=== PATIENT | male | born 1960 | race Caucasian/White ===

== ENCOUNTER 2017-10-12 08:08 | Day surgery (SDC) | payer BC ==
[2017-10-10 14:14] VITALS: BMI 27.6
[2017-10-12] MEDS ORDERED: MIDAZOLAM HCL 2 MG/2 ML SINGLE DOSE VIAL ONE (09:28)
[2017-10-12] MEDS ORDERED: DEXAMETHASONE SOD PHOSPHATE 4 MG/1 ML VIAL ONE (09:30)
[2017-10-12] MEDS ORDERED: PROPOFOL 20 ML ONE ×3 (09:30→09:31)
[2017-10-12] MEDS ORDERED: ONDANSETRON 4 MG/2 ML VIAL ONE ×2 (09:30→10:54)
[2017-10-12] MEDS ORDERED: fentaNYL CITRATE 250 MCG/5 ML VIAL ONE (09:30)
[2017-10-12] MEDS ORDERED: BUPIVACAINE HCL/PF 2.5 MG/ML - 30 ML VIAL IJ ONE (09:34)
[2017-10-12] MEDS ORDERED: ceFAZolin SODIUM 1 GM VIAL ONE (09:49)
[2017-10-12] MEDS ORDERED: DESFLURANE GAS 240 ML BOTTLE IH ONE (10:16)
[2017-10-12] MEDS ORDERED: ePHEDrine SULFATE 50 MG/1 ML AMPULE ONE (10:19)
[2017-10-12] MEDS ORDERED: ONDANSETRON 4 MG/2 ML VIAL IVPUSH PRN (11:14)
[2017-10-12] MEDS ORDERED: oxyCODONE HCL 5 MG TABLET PO PRN (11:14)
[2017-10-12] MEDS ORDERED: LACTATED RINGERS SOLUTION 1,000 ML IV SCH (11:15)
[2017-10-12 11:51] VITALS: TEMP 98
[2017-10-12 12:30] VITALS: BP 114/74; PULSE 76
--- NOTE | 2017-10-13 16:59 | OP ---
DATE OF OPERATION: 10/12/2017 PREOPERATIVE DIAGNOSIS: Left medial epicondylitis. POSTOPERATIVE DIAGNOSIS: Left medial epicondylitis. OPERATIVE PROCEDURE: Left medial epicondylar release with repair of common flexor tendon. SURGEON: Davon Ramírez MD ANESTHESIA: General. COMPLICATIONS: None. ESTIMATED BLOOD LOSS: Minimal. INDICATION FOR PROCEDURE: The patient is a 57-year-old male with the above finding, indicated for operative treatment. Risks, benefits, and alternatives were discussed with the patient at length. Proper informed consent was obtained. Of note, the patient initially had medial and lateral epicondylitis, but the lateral epicondylitis had resolved by the time of surgery; so, we just did the medial side. I had discussed this with the patient preoperatively. PROCEDURE: After proper identification of the patient and the correct operative site, the patient was brought to the operating room and placed supine on the operating room table. All bony prominences were well padded. General anesthesia was provided by the anesthesiologist and adequate for the procedure. The left upper extremity was prepped and draped in the usual sterile fashion. A well-padded tourniquet was placed as well as a sterile prep. An Esmarch bandage was used to exsanguinate the left upper extremity. Tourniquet was inflated to 250 mmHg. A curvilinear incision was made over the medial aspect of the elbow over the medial epicondyle. Incision was taken sharply through the skin with blunt and sharp dissection through the subcutaneous tissues. There was significant redness to the common flexor tendon origin, and this was divided longitudinally and tendinosis was found deep to the superficial layer which was debrided. Medial epicondyle was debrided. Partial tearing of the common flexor tendon was noted, and this was debrided and then repaired in a [id number] fashion back down to the medial epicondyle. Wound was irrigated and repaired in layers using 4-0 Vicryl and Monocryl suture. Steri-Strips and sterile dressings were applied. Patient was reversed from anesthesia and brought to Recovery in stable condition. He tolerated the procedure well. DAVON RAMÍREZ M.D. [facility]/[id number]
== END 2017-10-12 12:20 | disposition home or self-care (01) ==
LOC: FASU 08:08
PROVIDERS: ATTEND Orthopaedic Surgery Hand Surgery
PROC: 0PBD0ZZ Excision of Left Humeral Head, Open Approach (ICD-10-PCS; 2017-10-12)
PROC: 0PBG0ZZ Excision of Left Humeral Shaft, Open Approach (ICD-10-PCS; principal; 2017-10-12 10:03)
DX: M77.02 Medial epicondylitis, left elbow (principal)
CPT/HCPCS: 94760

== ENCOUNTER 2018-02-04 08:23 | Emergency (ER) | payer BC ==
[2018-02-04] MEDS ORDERED: DIPHTH,PERTUSS(ACELL),TET 0.5 ML DISP.SYRIN IM ONE (08:28)
[2018-02-04 08:33] VITALS: BP 139/83; PULSE 73; TEMP 98.5; BMI 27.9
--- NOTE | 2018-02-04 09:13 | PDOC ---
History of Present Illness - General Chief Complaint: Foreign Body (FB) Stated Complaint: SPLINTER LEFT HEEL Time Seen by Provider: 02/04/18 08:24 History Source: Patient Exam Limitations: No Limitations - History of Present Illness Initial Comments: 02/04/18 09:05 Patient is a 57-year-old man with no history of diabetes mellitus who presents complaining of a splinter in his left heel. He got a splinter when putting on his sneaker about a week ago. There is some tenderness to the area and some slight localized redness. No fever or chills. Review of systems: No fever or chills No other joint pains Positive slight redness to the skin in the area of the splinter. Past History - Past Medical History Allergies/Adverse Reactions: Allergies Allergy/AdvReac Type Severity Reaction Status Date / Time No Known Allergies Allergy Verified 02/04/18 08:24 Home Medications: Ambulatory Orders Amlodipine Besylate 5 mg PO DAILY 10/10/17 Duloxetine HCl [Cymbalta] 60 mg PO DAILY 10/10/17 Lamotrigine [Lamotrigine ER] 100 mg PO DAILY 10/10/17 Rosuvastatin Calcium [Crestor] 5 mg PO DAILY 10/10/17 Cefadroxil 500 mg PO BID #14 capsule 02/04/18 Naproxen [Naprosyn -] 375 mg PO BID PRN #14 tablet 02/04/18 Anemia: No Asthma: No Cancer: No Cardiac Disorders: No CVA: No COPD: No CHF: No Dementia: No Diabetes: No GI Disorders: Yes (GERD) Disorders: No HTN: Yes Hypercholesterolemia: Yes Liver Disease: No Seizures: No Thyroid Disease: No - Surgical History Abdominal Surgery: No Appendectomy: Yes (CHILD) Cardiac Surgery: No Cholecystectomy: No Lung Surgery: No Neurologic Surgery: No Orthopedic Surgery: Yes (LEFT BICEP) - Suicide/Smoking/Psychosocial Hx Smoking Status: No Smoking History: Never smoked Have you smoked in the past 12 months: No Number of Cigarettes Smoked Daily: 0 Information on smoking cessation initiated: No Hx Alcohol Use: No Drug/Substance Use Hx: No Substance Use Type: Alcohol Hx Substance Use Treatment: No *Physical Exam - Vital Signs Last Vital Signs Temp Pulse Resp BP Pulse Ox 98.5 F 73 20 139/83 100 02/04/18 08:24 02/04/18 08:24 02/04/18 08:24 02/04/18 08:24 02/04/18 08:24 - Physical Exam Comments: 02/04/18 09:06 GENERAL: The patient is awake, alert, and fully oriented, in no acute distress. HEAD: Normal with no signs of trauma. EYES: Pupils equal, round and reactive to light, extraocular movements intact, sclera anicteric, conjunctiva clear. EXTREMITIES: Normal range of motion, no edema. Left heel with slight tenderness on deep palpation over the heel. No palpable or visible foreign body. Slight redness to the area of the heel, area localized. No open wound. NEUROLOGICAL: Normal speech, normal gait. PSYCH: Normal mood, normal affect. SKIN: Warm, Dry, normal turgor, no rashes or lesions noted. See left heel examination above. ED Treatment Course - RADIOLOGY Radiology Studies Ordered: Category Date Time Status OSCALCIS/HEEL-LEFT [RAD] Stat Radiology 02/04/18 08:29 Taken Medical Decision Making - Medical Decision Making 02/04/18 09:08 Patient with possible foreign body left heel, on examination there is minimal redness, no open wound, no palpable or visible foreign body. Impression: Possible foreign body Plan: TD Booster given X-ray of left heel performed. On my review of the x-rays of the left heel, there is a tiny sliver of a foreign body in the region of the left heel. Given the and I am unable to palpate or see the foreign body on examination, and based upon the fact that it looks deep on the x-ray, and it is very tiny, the likelihood of retrieving this foreign body is low, and attempting to do so would likely cause significant tissue injury. Patient advised to take antibiotic for 7 days and to follow-up if any fever or increasing redness or pain. Follow-up given to podiatry. *DC/Admit/Observation/Transfer Diagnosis at time of Disposition: Foreign body in subcutaneous tissue - Discharge Dispostion Disposition: HOME Condition at time of disposition: Stable Decision to Admit order: No - Prescriptions Prescriptions: Cefadroxil 500 mg PO BID #14 capsule Naproxen [Naprosyn -] 375 mg PO BID PRN #14 tablet PRN Reason: foot pain and inflammation - Referrals Referrals: Nicole Barber MD [Staff Physician] - 1 week - Patient Instructions Additional Instructions: You were evaluated today for a splinter in your left heel. The x-ray shows a very tiny splinter deep in the heel. The foreign body was not removed because it is too small and too deep. Take the prescribed antibiotic twice a day for 7 days to reduce the inflammation. Take Naprosyn twice a day as needed for inflammation. Follow-up with Dr. Blanco, filler machine operator, if the symptoms do not resolve. Return to the emergency department if any serious signs of infection develop such as fever, increased redness, increased swelling, or increased pain. - Post Discharge Activity
== END 2018-02-04 09:28 | disposition home or self-care (01) ==
LOC: FER 08:23
PROC: 3E0234Z Introduction of Serum, Toxoid and Vaccine into Muscle, Percutaneous Approach (ICD-10-PCS; principal; 2018-02-04)
DX: M79.5 Residual foreign body in soft tissue (principal); I10 Essential (primary) hypertension; E78.00 Pure hypercholesterolemia, unspecified; K21.9 Gastro-esophageal reflux disease without esophagitis; E11.9 Type 2 diabetes mellitus without complications
CPT/HCPCS: 73650-TC-LT-FY; 90715; 99281-25

== ENCOUNTER 2024-10-04 07:57 | Day surgery (SDC) | payer BC ==
[2024-10-02 10:03] VITALS: BMI 27.5
[2024-10-04] MEDS ORDERED: PROPOFOL 20 ML ONE (08:35)
[2024-10-04] MEDS ORDERED: MIDAZOLAM HCL 2 MG/2 ML SINGLE DOSE VIAL ONE (08:35)
[2024-10-04] MEDS ORDERED: LIDOCAINE HCL/PF 2% SDV 5ML VIAL ONE (08:35)
[2024-10-04] MEDS ORDERED: BUPIVACAINE HCL/PF 0.5% (5MG/ML) 10 ML VIAL ONE (10:48)
[2024-10-04] MEDS ORDERED: LIDOCAINE 1%/EPI 1:100000 (20 ML MULTI DOSE VIAL) ONE (10:48)
[2024-10-04] MEDS ORDERED: ceFAZolin SODIUM 1 GM VIAL ONE (11:08)
[2024-10-04] MEDS ORDERED: DEXAMETHASONE SOD PHOSPHATE 4 MG/1 ML VIAL ONE (11:08)
[2024-10-04] MEDS ORDERED: oxyCODONE HCL 5 MG TABLET PO PRN (11:19)
[2024-10-04] MEDS ORDERED: PROMETHAZINE HCL 25 MG/1 ML VIAL IVPB PRN (11:19)
[2024-10-04] MEDS ORDERED: ONDANSETRON 4 MG/2 ML VIAL IVPUSH PRN (11:19)
[2024-10-04] MEDS ORDERED: LACTATED RINGERS SOLUTION 1,000 ML IV SCH (11:30)
[2024-10-04] MEDS ORDERED: KETOROLAC TROMETHAMINE 30 MG/1 ML VIAL ONE (11:43)
[2024-10-04] MEDS ORDERED: FENTANYL CITRATE/PF 50 MCG/ML VIAL ONE ×2 (12:02→12:37)
[2024-10-04] MEDS: ACETAMINOPHEN 1000 MG/100 ML BAG IVPB ONE (12:03)
[2024-10-04 13:19] VITALS: RESP 18; TEMP 98
[2024-10-04] MEDS: oxyCODONE HCL 5 MG TABLET PO PRN (13:25)
[2024-10-04] MEDS ORDERED: oxyCODONE HCL 5 MG TABLET ONE (13:25)
[2024-10-04 13:32] VITALS: PULSE 79
[2024-10-04 14:10] VITALS: BP 119/79
== END 2024-10-04 14:00 | disposition home or self-care (01) ==
LOC: FASU 07:57
PROVIDERS: ATTEND Orthopaedic Surgery Sports Medicine
PROC: 0LN30ZZ Release Right Upper Arm Tendon, Open Approach (ICD-10-PCS; principal; 2024-10-04 11:18)
DX: M77.11 Lateral epicondylitis, right elbow (principal)
CPT/HCPCS: 24359; C1713; 94760; J0131